=== PATIENT | female | born 1940 | race Caucasian/White ===

== ENCOUNTER → 2023-10-06 12:52 | Outpatient (REF) | payer MEDICARE, BC, SELFPAY ==
[2023-10-06 13:21] LABS: % Basophils 1.1 % (0-2); % Eosinophils 1.2 % (0-6); % Immature Granulocytes 0.1 % (0-0.5); % Lymphocytes 26.5 % (20.5-51.1); % Monocytes 7.8 % (1.7-9.3); % Neutrophils 63.3 % (42.2-75.2); Absolute Basophils 0.1 10^3/uL (0-0.2); Absolute Eosinophils 0.1 10^3/uL (0-0.7); Absolute Lymphocytes 1.9 10^3/uL (1.2-3.4); Absolute Monocytes 0.6 10^3/uL (0.1-0.6); Absolute Neutrophils 4.6 10^3/uL (1.4-6.5); Hematocrit 42.5 % (37.0-47.0); Hemoglobin 14.4 g/dL (12.0-16.0); Mean Corp Hgb Conc. 33.9 g/dL (33.0-37.0); Mean Corpuscular Hgb 30.6 pg (27.0-31.0); Mean Corpuscular Volume 90.2 fL (81.0-99.0); Mean Platelet Volume 11.5 fL (7.4-10.4); Nucleated Red Blood Cells % 0 %; Platelet Count 209 10^3/uL (130-400); Red Blood Cell Count 4.71 10^6/uL (4.20-5.40); Red Cell Dist. Width 15.5 % (11.5-14.5); White Blood Cell Count 7.3 10^3/uL (4.8-10.8)
[2023-10-06 13:52] LABS: ALT (SGPT) 24 U/L (0-35); AST (SGOT) 30 U/L (14-36); Albumin 4.4 g/dl (3.5-5.0); Alkaline Phosphatase 114 U/L (38-126); Blood Urea Nitrogen 29 mg/dl (7-17); Calcium 9.6 mg/dl (8.4-10.2); Carbon Dioxide 23 mmol/L (22-30); Chloride 106 mmol/L (98-107); Glucose 152 mg/dl (70-99); HDL Cholesterol 67 mg/dl; LDL Cholesterol, Calculated 75 mg/dl; Potassium 3.4 mmol/L (3.5-5.1); Sodium 138 mmol/L (135-145); Total Bilirubin 0.9 mg/dl (0.2-1.3); Total Cholesterol 159 mg/dl (50-199); Total Protein 7.3 g/dl (6.3-8.2); Triglyceride 89 mg/dl (10-149); Very Low Density Lipoprotein 17 mg/dl (0-30)
[2023-10-06 13:59] LABS: Urine Albumin Negative (Neg - Trace); Urine Bilirubin Negative (Negative); Urine Character Very Cloudy (Clear); Urine Color Yellow; Urine Glucose Negative (Negative); Urine Ketone Trace (Negative); Urine Leukocyte 2+ (Negative); Urine Nitrite Positive (Negative); Urine Occult Blood Trace (Negative); Urine Urobilinogen Negative (Neg - 1+)
[2023-10-06 14:08] LABS: Urine Mucus Few
[2023-10-06 14:09] LABS: Urine Squamous Cell 26-30 /LPF (Few)
[2023-10-06 14:10] LABS: Urine Bacteria Many (Negative); Urine White Cell >100 /HPF (0-5)
[2023-10-06 14:24] LABS: Glycohemoglobin (HgbA1c) 6.3 % (4.0-5.6)
[2023-10-06 14:41] LABS: Microalbumin, Random Urine 1.9 mg/dl (0.6-1.7)
[2023-10-09 11:52] LABS: Intact PTH 6.1 pg/ml (13.6-85.8)
== END ==
LOC: WDC 12:52
PROVIDERS: ATTENDING PHYSICIAN Family Medicine
DX: E11.21 Type 2 diabetes mellitus with diabetic nephropathy (principal); E78.5 Hyperlipidemia, unspecified; N18.31 Chronic kidney disease, stage 3a; E11.9 Type 2 diabetes mellitus without complications; Z12.31 Encounter for screening mammogram for malignant neoplasm of breast
CPT/HCPCS: 36415; 77063; 77067; 80053; 80061; 81003; 81015; 82043; 83036; 83970; 85025

== ENCOUNTER → 2023-10-07 14:07 | Outpatient (REF) | payer MEDICARE, BC, SELFPAY ==
[2023-10-07 15:06] LABS: Urine Albumin Trace (Neg - Trace); Urine Bilirubin Negative (Negative); Urine Character Clear (Clear); Urine Color Yellow; Urine Glucose Negative (Negative); Urine Ketone Trace (Negative); Urine Leukocyte 2+ (Negative); Urine Nitrite Positive (Negative); Urine Occult Blood Negative (Negative); Urine Specific Gravity 1.015 (<1.030); Urine Urobilinogen Negative (Neg - 1+)
[2023-10-07 15:26] LABS: Urine Bacteria Many (Negative); Urine Hyaline Cast 0-2 /LPF (0-2); Urine Red Blood Cell None Seen /HPF (0-2); Urine Squamous Cell 0-2 /LPF (Few); Urine White Cell >100 /HPF (0-5)
== END ==
LOC: REG 14:07
PROVIDERS: ATTENDING PHYSICIAN Family Medicine
DX: R82.81 Pyuria (principal)
CPT/HCPCS: 81003; 81015; 87077; 87086; 87186

== ENCOUNTER 2024-09-05 11:50 | Emergency (ER) | payer MEDICARE, BC, SELFPAY ==
[2024-09-05 12:17] VITALS: BP 148/73
--- NOTE | 2024-09-05 12:18 | ED.GENMED ---
ED Provider Triage
-
Patient seen by provider in Triage?: Seen in Triage
Attestation: A medical screening examination has been initiated by a qualified medical provider. Based on the assessment performed at this time, it has been determined that an emergent medical condition may exist and the patient has been informed
that further medical evaluation and possible additional diagnostic testing may be needed.
HPI: 84-year-old female is here for her third nosebleed in the past 6 days. Has appointment with ENT 2/4 at [place], but patient would prefer to see ENT here in [facility]. Nosebleed this morning started on left side and then some on both
sides, with clots. No thinners.
GENERAL: Alert , in no apparent distress
EYE: No visual abnormalities.
NECK: Trachea midline
ENT: No visible abnormalities.
LUNGS: No acute respiratory distress
NEUROLOGICAL: Alert and oriented
SKIN: Skin intact. No visible changes.
MUSCULOSKELETAL: Moving extremities normally
PSYCH: Normal and appropriate interaction.
This is a medical evaluation conducted in person to initiate diagnostic evaluation and provide initial therapeutics. Please see further documentation by the treating clinician.
History of Present Illness
General
Chief Complaint: Nose Bleed
Source: patient and family (Son with patient)
Exam Limitations: none
Time Seen by Provider: 09/05/24 14:29
Nursing documentation reviewed up to this point in time: agreed with
History of Present Illness
History of Present Illness:
84-year-old female is here for her third nosebleed in the past 6 days. Has appointment with ENT 2/4 at [place], but patient would prefer to see ENT here in [facility]. Nosebleed this morning started on left side and then some on both
sides, with clots. No thinners.
Past History
Past History
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
ED Past Surgical History: Gynecological (Hysterectomy), Tonsilectomy and Other (Right lung lobectomy)
Social History
Tobacco: Non-smoker
Alcohol: None
Drug: None
Living: alone
Review of Systems
Review of Systems
Allergies reviewed?: Yes
All Other Systems: ROS reviewed and negative except as documented in HPI and ROS
Constitutional: Denies fever or chills
EENT: Denies sore throat or runny nose
Respiratory: Denies cough or trouble breathing
Cardiac: Denies chest pain
ABD/GI: Denies abdominal pain or nausea
Musculoskeletal: Reports no symptoms
Skin: Reports no symptoms
Neurological: Reports no symptoms
Phy Exam
Physical Exam
Physical Exam:
GENERAL: No acute distress. A&Ox3.
CONSTITUTIONAL: Afebrile.
EYES: clear, conjunctivae normal
ENMT: moist mucus membranes, Pharynx nl. No active bleeding from nose. Left nostril has small amount red blood, no active bleeding site identified.
RESPIRATORY: Regular respirations, nonlabored, lungs clear.
CARDIOVASCULAR: Regular rate and rhythm, no murmurs, no rubs.
GI: Soft, nontender, normal BS
MUSCULOSKELETAL: Moves with ease. Well perfused.
SKIN: Warm, dry, pink
PSYCH: Normal mood and affect. Well kept, interactive and appropriate
NEUROLOGIC: Awake, alert and oriented. No focal neurological deficits
Course
Vital Signs
Initial and Last Documented VS:
Initial Vital Signs
Temp Pulse Resp BP Pulse Ox
97.9 F 75 17 148/73 98
09/05/24 12:17 09/05/24 12:17 09/05/24 12:17 09/05/24 12:17 09/05/24 12:17
Last Documented Vital Signs
Temp Pulse Resp BP Pulse Ox
97.9 F 75 17 148/73 98
09/05/24 12:17 09/05/24 12:17 09/05/24 12:17 09/05/24 12:17 09/05/24 12:17
MDM/Problems Addressed
MDM/Problems Addressed:
84-year-old female is here for her third nosebleed in the past 6 days. Has appointment with ENT 2/4 at [place], but patient would prefer to see ENT here in [facility]. Nosebleed this morning started on left side and then some on both
sides, with clots. No thinners.
2:45 PM:
Patient has had no bleeding since arrival.
No active bleeding on exam of nasal passages.
I gave her the option of packing her nose or taking home a nose clamp to use as needed and she opted for the nose clamp.
ED Attending Note
-
Portions of this chart may have been created with voice recognition software.� Occasional wrong word or��sound alike� substitutions may have occurred due to the inherent limitations of voice recognition software.
Discharge Plan
Departure
Patient Disposition: Home (Routine Discharge)
Date of Disposition: 09/05/24
Time of Disposition: 14:43
Patient with high blood pressure during this ER visit?: No
Discharge Problem:
Epistaxis
Instructions: Nosebleeds (DC)
Prescriptions:
No Action
allopurinol 100 MG tablet
300 mg PO DAILY
lovastatin [Altoprev] 60 MG tablet extended release 24 hr
60 mg PO QPM
xmbhdwel-yzx-PS-lycopen-lutein [Centrum Silver] 1 EACH tablet
1 ea PO DAILY
acetaminophen 325 MG tablet
650 mg PO Q4HPRN PRN (Reason: mild pain)
coenzyme Q10 [Co Q-10] 10 MG capsule
1 dose PO DAILY
cyanocobalamin (vitamin B-12) 1,000 MCG tablet
1,000 mcg PO DAILY
cranberry fruit 400 MG capsule
1 dose PO DAILY
doxazosin 4 MG tablet
8 mg PO QPM
cholecalciferol (vitamin D3) 2,000 UNITS tablet
2,000 units PO DAILY
omega 1-aef-xdm-fish oil 1 EACH capsule
1 ea PO DAILY
biotin 5,000 MCG tablet, sublingual
5,000 mcg PO DAILY
loperamide 2 MG capsule
2 mg PO Q6HPRN PRN (Reason: diarrhea) 0RF
nifedipine 30 MG tablet extended release
30 mg PO DAILY Qty: 30 0RF
Referrals:
Giorgi Collins MD [Active] - As needed
Wiley Christina MD [Active] - As needed
UNKNOWN - PT DOES,NOT KNOW [Family Provider] -
Activity Restrictions/Additional Instructions:
As we discussed, use the clamps as I showed you as needed for nosebleeds. If after applying the clamp for 15 minutes 3 separate times your nose still bleeding you need to return here for evaluation.
Interventions
Interventions:
*Risk Screen - Suicide Last Done: 09/05/24 12:19
*General Assessment Last Done: 09/05/24 12:19
*Neglect/Abuse Screening Last Done: 09/05/24 12:19
*ED COVID-19 Vaccine History Last Done: 09/05/24 12:19
ED-EENT Assessment Last Done: 09/05/24 13:14
Discharge Date and Time
Print Language: YI
[2024-09-05 15:00] VITALS: BP 140/76
== END 2024-09-05 15:01 | disposition home or self-care (01) ==
LOC: EMR 11:50
PROVIDERS: EMERGENCY PHYSICIAN Student in an Organized Health Care Education/Training Program
DX: R04.0 Epistaxis (principal); I10 Essential (primary) hypertension; E78.00 Pure hypercholesterolemia, unspecified; E11.9 Type 2 diabetes mellitus without complications; G47.33 Obstructive sleep apnea (adult) (pediatric); Z85.42 Personal history of malignant neoplasm of other parts of uterus; Z90.710 Acquired absence of both cervix and uterus
CPT/HCPCS: 99282

== ENCOUNTER → 2024-10-31 12:00 | Outpatient (REF) | payer MEDICARE, BC, SELFPAY | LOC: WDC 12:00 | PROVIDERS: ATTENDING PHYSICIAN Family Medicine | DX: Z12.31 Encounter for screening mammogram for malignant neoplasm of breast (principal) | CPT/HCPCS: 77063; 77067 ==

== ENCOUNTER → 2024-10-31 13:05 | Outpatient (REF) | payer MEDICARE, BC, SELFPAY ==
[2024-10-31 14:07] LABS: % Basophils 0.8 % (0-2); % Eosinophils 1.1 % (0-6); % Immature Granulocytes 0.5 % (0-0.5); % Monocytes 8.2 % (1.7-9.3); % Neutrophils 66.4 % (42.2-75.2); Absolute Basophils 0.1 10^3/uL (0-0.2); Absolute Eosinophils 0.1 10^3/uL (0-0.7); Absolute Lymphocytes 1.5 10^3/uL (1.2-3.4); Absolute Monocytes 0.5 10^3/uL (0.1-0.6); Absolute Neutrophils 4.2 10^3/uL (1.4-6.5); Hematocrit 38.2 % (37.0-47.0); Mean Corpuscular Hgb 31.1 pg (27.0-31.0); Mean Corpuscular Volume 91.4 fL (81.0-99.0); Mean Platelet Volume 11.6 fL (7.4-10.4); Nucleated Red Blood Cells % 0 %; Platelet Count 151 10^3/uL (130-400); Red Blood Cell Count 4.18 10^6/uL (4.20-5.40); Red Cell Dist. Width 16.7 % (11.5-14.5); White Blood Cell Count 6.4 10^3/uL (4.8-10.8)
[2024-10-31 14:31] LABS: ALT (SGPT) 29 U/L (0-35); AST (SGOT) 24 U/L (14-36); Albumin 4.2 g/dl (3.5-5.0); Alkaline Phosphatase 97 U/L (38-126); Blood Urea Nitrogen 33 mg/dl (7-17); Carbon Dioxide 25 mmol/L (22-30); Chloride 108 mmol/L (98-107); Glucose 139 mg/dl (70-99); HDL Cholesterol 65 mg/dl; LDL Cholesterol, Calculated 152 mg/dl; Potassium 3.7 mmol/L (3.5-5.1); Sodium 144 mmol/L (135-145); Total Bilirubin 0.7 mg/dl (0.2-1.3); Total Cholesterol 234 mg/dl (50-199); Total Protein 7.1 g/dl (6.3-8.2); Triglyceride 86 mg/dl (10-149); Uric Acid 3.3 mg/dl (2.5-6.2); Very Low Density Lipoprotein 17 mg/dl (0-30); eGFR > 60.00
[2024-10-31 15:02] LABS: TSH Reflex To Free T4 0.05 uIU/ml (0.47-4.68)
== END ==
LOC: REG 13:05
PROVIDERS: ATTENDING PHYSICIAN Family Medicine
DX: I10 Essential (primary) hypertension (principal); E78.5 Hyperlipidemia, unspecified; M10.9 Gout, unspecified; R73.03 Prediabetes; N18.31 Chronic kidney disease, stage 3a
CPT/HCPCS: 36415; 80053; 80061; 83036; 84439; 84443; 84550; 85025

== ENCOUNTER → 2025-05-03 14:37 | Outpatient (REF) | payer MEDICARE, BC, SELFPAY | LOC: RCS 14:37 | PROVIDERS: ATTENDING PHYSICIAN Family Medicine | DX: R06.09 Other forms of dyspnea (principal) | CPT/HCPCS: 93005; 93306 ==

== ENCOUNTER 2025-05-24 20:35 | Inpatient (IN) | payer MEDICARE, BC, SELFPAY ==
[2025-05-24] VITALS (9 sets, daily range): BP systolic 127–172; BP diastolic 43–74; BMI 34.4
[2025-05-24 16:42] LABS: Hematocrit 19.8 % (37.0-47.0); Hemoglobin 6.5 g/dL (12.0-16.0); Mean Corp Hgb Conc. 32.8 g/dL (33.0-37.0); Mean Corpuscular Volume 103.7 fL (81.0-99.0); Red Cell Dist. Width 18.6 % (11.5-14.5)
[2025-05-24 16:53] LABS: ALT (SGPT) 17 U/L (0-35); AST (SGOT) 22 U/L (14-36); Albumin 4.2 g/dl (3.5-5.0); Alkaline Phosphatase 89 U/L (38-126); Blood Urea Nitrogen 31 mg/dl (7-17); Calcium 9.1 mg/dl (8.4-10.2); Carbon Dioxide 21 mmol/L (22-30); Chloride 108 mmol/L (98-107); Glucose 150 mg/dl (70-99); Potassium 3.7 mmol/L (3.5-5.1); Sodium 138 mmol/L (135-145); Total Protein 7.0 g/dl (6.3-8.2); eGFR 49.24
[2025-05-24 17:46] LABS: Platelet Count 52 10^3/uL (130-400)
[2025-05-24 18:21] LABS: Nucleated Red Blood Cells % 0 %
--- NOTE | 2025-05-24 18:56 | ED.GENMED ---
History of Present Illness
<Mikie Cabrera Jr., PA-C - Last Filed: 05/24/25 19:50>
General
Chief Complaint: Abnormal Lab Value
Source: patient
Exam Limitations: none
Time Seen by Provider: 05/24/25 17:54
Nursing documentation reviewed up to this point in time: agreed with
History of Present Illness
History of Present Illness:
85-year-old female presenting to the emergency department after being found to have low hemoglobin low platelets and neutropenia as an outpatient. Has had vague shortness of breath weakness and fatigue over the past month or so. Denies any known
bleeding no changes in bowel movements. Does have a colostomy in place.
Past History
<Mikie Cabrera Jr., PA-C - Last Filed: 05/24/25 19:50>
Past History
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
ED Past Surgical History: Gynecological (Hysterectomy), Tonsilectomy and Other (Right lung lobectomy)
Social History
Tobacco: Non-smoker
Alcohol: None
Drug: None
Living: alone
Review of Systems
<Mikie Cabrera Jr., PA-C - Last Filed: 05/24/25 19:50>
Review of Systems
Allergies reviewed?: Yes
All Other Systems: ROS reviewed and negative except as documented in HPI and ROS
Phy Exam
<Mikie Cabrera Jr., PA-C - Last Filed: 05/24/25 19:50>
Physical Exam
Physical Exam:
GENERAL: Alert , in no apparent distress
EYE: pupils equal and reactive
NECK: Supple, no significant adenopathy.
ENT: o/p clr, mmm.
CARDIAC: Regular rate and rhythm .
LUNGS: Clear breath sounds bilaterally, no acute respiratory distress, no wheezes/rales/rhonchi
ABDOMEN: Colostomy in place, stool sample for guaiac which was negative. Abdomen is soft, without focal tenderness, no r/g, no cvat
NEUROLOGICAL: Alert and oriented, no focal neuro deficits
SKIN: Warm and dry, skin intact.
MUSCULOSKELETAL: No edema, well perfused.
PSYCH: Normal and appropriate interaction.
Course
<Mikie Cabrera Jr., PA-C - Last Filed: 05/24/25 19:50>
Orders/Labs/Results
Orders:
Orders
05/24/25 16:08
EKG [Electrocardiogram (*1)] Urgent
Reason for Study: Other
Other Reason for Exam: anemia
EKG- Treatment ONCE
05/24/25 16:23
Type+Screen Urgent
CMP [Comprehensive Metabolic Panel] Urgent
Complete Blood Count/With Diff Urgent
Ferritin Urgent
Comment: ADD ON
Folate Urgent
Comment: ADD ON
Iron Urgent
Comment: ADD ON
LDH Urgent
Comment: ADD ON
Reticulocyte Count Urgent
Total Iron Binding Urgent
Comment: ADD ON
Vitamin B12 Urgent
Comment: ADD ON
05/24/25 18:55
* Blood Bank Products Urgent
Blood Bank Products: *Packed RBC Leuko (PRBC's
Quantity: 1
Transfuse Today: Yes
Reason: Anemia
05/24/25 19:42
Add On- LAB Routine
Tests Added?: iron, ferritin, tibc, foalte, vit b12
05/24/25 19:59
Admit/Transfer Patient As Directed
Co-Sign Provider:
Level of Care: Inpatient admission
Assign to:: Medical/Surgical
Physician / Group: Terry
Diagnosis: Symptomatic Anemia / Pancytopenia
Reason for Hospitalization: blood transfusion, hematology consult
Expected length of stay greater than two midnights?: Yes
ELOS- Estimated Length of Stay in days: 3
I certify the patient meets the requirements for IP care: Yes
PRN Pain Medication Management As Directed
May give lesser potent ordered pain med per pt: Yes
preference::
Protocol:: Medication orders for pain may be administered in a
manner that supports deferring to patient preference
when the pt is:
- Requesting an ordered lesser potent pain medication.
Least to most potent pain medications are defined
as: acetaminophen < NSAID < tramadol < opioids
(morphine, oxycodone, hydromorphone).
- Requesting a lesser dose of the same medication IF
ORDERED.
- Requesting a less intrusive route of administration
if both routes are prescribed by the provider (PO <
IV).
05/24/25 20:00
Code Status As Directed
Resuscitation Status: Full Code
Abnormal Lab Results
05/24/25
16:23
WBC 2.5 L 10^3/uL
(4.8-10.8)
RBC 1.91 L 10^6/uL
(4.20-5.40)
Hgb 6.5 L* g/dL
(12.0-16.0)
Hct 19.8 L* %
(37.0-47.0)
MCV 103.7 H fL
(81.0-99.0)
MCH 34.0 H pg
(27.0-31.0)
MCHC 32.8 L g/dL
(33.0-37.0)
RDW 18.6 H %
(11.5-14.5)
Plt Count 52 L 10^3/uL
(130-400)
Absolute Neuts (auto) 0.9 L* 10^3/uL
(1.4-6.5)
Immature Gran % 1.6 H %
(0-0.5)
Neutrophils % 35.1 L %
(42.2-75.2)
Lymphocytes % 51.8 H %
(20.5-51.1)
Monocytes % 10.3 H %
(1.7-9.3)
Chloride 108 H mmol/L
(98-107)
Carbon Dioxide 21 L mmol/L
(22-30)
BUN 31 H mg/dl
(7-17)
Creatinine 1.1 H mg/dL
(0.6-1.0)
Glucose 150 H mg/dl
(70-99)
TIBC 261 L ug/dl
(265-497)
Total Bilirubin 1.7 H mg/dl
(0.2-1.3)
Crossmatch IS Only See Detail
05/24/25 16:23
05/24/25 16:23
Vital Signs
Initial and Last Documented VS:
Initial Vital Signs
Temp Pulse Resp BP Pulse Ox
98.5 F 94 20 157/74 98
05/24/25 16:02 05/24/25 16:02 05/24/25 16:02 05/24/25 16:02 05/24/25 16:02
Last Documented Vital Signs
Temp Pulse Resp BP Pulse Ox
98.2 F 84 18 127/43 98
05/24/25 20:31 05/24/25 20:31 05/24/25 20:31 05/24/25 20:31 05/24/25 20:31
<Sandra Johnson MD - Last Filed: 05/24/25 20:41>
Orders/Labs/Results
Orders:
Orders
05/24/25 16:08
EKG [Electrocardiogram (*1)] Urgent
Reason for Study: Other
Other Reason for Exam: anemia
EKG- Treatment ONCE
05/24/25 16:23
Type+Screen Urgent
CMP [Comprehensive Metabolic Panel] Urgent
Complete Blood Count/With Diff Urgent
Ferritin Urgent
Comment: ADD ON
Folate Urgent
Comment: ADD ON
Iron Urgent
Comment: ADD ON
LDH Urgent
Comment: ADD ON
Reticulocyte Count Urgent
Total Iron Binding Urgent
Comment: ADD ON
Vitamin B12 Urgent
Comment: ADD ON
05/24/25 18:55
* Blood Bank Products Urgent
Blood Bank Products: *Packed RBC Leuko (PRBC's
Quantity: 1
Transfuse Today: Yes
Reason: Anemia
05/24/25 19:42
Add On- LAB Routine
Tests Added?: iron, ferritin, tibc, foalte, vit b12
05/24/25 19:59
Admit/Transfer Patient As Directed
Co-Sign Provider:
Level of Care: Inpatient admission
Assign to:: Medical/Surgical
Physician / Group: Terry
Diagnosis: Symptomatic Anemia / Pancytopenia
Reason for Hospitalization: blood transfusion, hematology consult
Expected length of stay greater than two midnights?: Yes
ELOS- Estimated Length of Stay in days: 3
I certify the patient meets the requirements for IP care: Yes
PRN Pain Medication Management As Directed
May give lesser potent ordered pain med per pt: Yes
preference::
Protocol:: Medication orders for pain may be administered in a
manner that supports deferring to patient preference
when the pt is:
- Requesting an ordered lesser potent pain medication.
Least to most potent pain medications are defined
as: acetaminophen < NSAID < tramadol < opioids
(morphine, oxycodone, hydromorphone).
- Requesting a lesser dose of the same medication IF
ORDERED.
- Requesting a less intrusive route of administration
if both routes are prescribed by the provider (PO <
IV).
05/24/25 20:00
Code Status As Directed
Resuscitation Status: Full Code
Abnormal Lab Results
05/24/25
16:23
WBC 2.5 L 10^3/uL
(4.8-10.8)
RBC 1.91 L 10^6/uL
(4.20-5.40)
Hgb 6.5 L* g/dL
(12.0-16.0)
Hct 19.8 L* %
(37.0-47.0)
MCV 103.7 H fL
(81.0-99.0)
MCH 34.0 H pg
(27.0-31.0)
MCHC 32.8 L g/dL
(33.0-37.0)
RDW 18.6 H %
(11.5-14.5)
Plt Count 52 L 10^3/uL
(130-400)
Absolute Neuts (auto) 0.9 L* 10^3/uL
(1.4-6.5)
Immature Gran % 1.6 H %
(0-0.5)
Neutrophils % 35.1 L %
(42.2-75.2)
Lymphocytes % 51.8 H %
(20.5-51.1)
Monocytes % 10.3 H %
(1.7-9.3)
Chloride 108 H mmol/L
(98-107)
Carbon Dioxide 21 L mmol/L
(22-30)
BUN 31 H mg/dl
(7-17)
Creatinine 1.1 H mg/dL
(0.6-1.0)
Glucose 150 H mg/dl
(70-99)
TIBC 261 L ug/dl
(265-497)
Total Bilirubin 1.7 H mg/dl
(0.2-1.3)
Crossmatch IS Only See Detail
05/24/25 16:23
05/24/25 16:23
Vital Signs
Initial and Last Documented VS:
Initial Vital Signs
Temp Pulse Resp BP Pulse Ox
98.5 F 94 20 157/74 98
05/24/25 16:02 05/24/25 16:02 05/24/25 16:02 05/24/25 16:02 05/24/25 16:02
Last Documented Vital Signs
Temp Pulse Resp BP Pulse Ox
98.2 F 84 18 127/43 98
05/24/25 20:31 05/24/25 20:31 05/24/25 20:31 05/24/25 20:31 05/24/25 20:31
<Mikie Cabrera Jr., PA-C - Last Filed: 05/24/25 19:50>
MDM/Problems Addressed
MDM/Problems Addressed:
85-year-old female presenting to the emergency department today with concerns of abnormal labs as an outpatient. Has had vague symptoms over the past month or so. Denies any known bleeding. Vital signs normal on arrival patient no distress stool
was guaiac negative and brown. Patient does have neutropenia thrombocytopenia and anemia. Patient written for a unit of blood otherwise will be admitted for further monitoring.
<Mikie Cabrera Jr., PA-C - Last Filed: 05/24/25 19:50>
*Pulse Oximetry
SaO2: 98
Oxygen Mode of Delivery: Room air
Patient hypoxic: no (99)
*Critical Care Note
Total Time (30-74mins, 75-104mins- exclusive of procedures): Not Applicable
ED Attending Note
<DIO Neal Jr. Last Filed: 05/24/25 19:50>
-
Portions of this chart may have been created with voice recognition software.� Occasional wrong word or��sound alike� substitutions may have occurred due to the inherent limitations of voice recognition software.
<Sandra Johnson MD - Last Filed: 05/24/25 20:41>
ED Attending Note
Patient seen and examined by attending physician: Yes
I performed the substantive portion of visit, reviewed & personally made and approve the management plan that is documented in note by myself or VALENTINO.: Yes
ED Attending Note:
85 yr old female with c/o weakness over some time...noted to have pancytopenia as an outpt and presents to ED. Pt denies cp/sob/abd pain/bleeding/f/c/n/v or other comts. Watching tv in bed here, comfortable, in nad. PRBC's infusing. Pt to be
admitted for continued montioring and w/u.
Discharge Plan
Departure
Patient Disposition: Admit
Date of Disposition: 05/24/25
Time of Disposition: 19:49
Admit to: Med/Surg
Admit to doctor: Terry
Presentation/result/management discussed w/ accepting MD/DO: Hospitalist
Patient with high blood pressure during this ER visit?: No
Condition: Good
Covid-19: Not Applicable
Discharge Problem:
Pancytopenia
Interventions
Interventions:
*Risk Screen - Suicide Last Done: 05/24/25 16:02
*General Assessment Last Done: 05/24/25 18:59
*Neglect/Abuse Screening Last Done: 05/24/25 16:02
*ED- Fall Risk Assessment Last Done: 05/24/25 18:59
*ED COVID-19 Vaccine History Last Done: 05/24/25 18:59
*ED Influenza Vaccine History Last Done: 05/24/25 18:59
--- NOTE | 2025-05-24 19:37 | HPS.HSE ---
Addendum entered and electronically signed by Ernesto Stewart DO 05/24/25 21:13:
Patient seen and examined independently. Agree with findings and plan as set forth by Pastora Duffy PA-C.
Patient is an 85y F with PMH significant for hypertension and aortic stenosis who presents to ED for evaluation of abnormal outpatient labs. Patient states that she has been having fatigue and dyspnea with activity / exercise intolerance since
the end of April. She was seen by her PCP and [facility] and had an Echo that was reportedly unremarkable. She had labs done this AM which were abnormal and was sent to the ED for further evaluation.
Patient denies any gross blood loss. No new medications.
Ass:
Symptomatic Anemia
Pancytopenia
Benign Hypertension
Dyslipidemia
History of Gout
Obesity due to excess calories
Plan:
Admit for further evaluation and treatment.
Unclear etiology of pancytopenia.
Transfusing PRBCs in the ED for symptomatic anemia. Follow for improvement.
Hematology evaluation for further recommendations.
Hold allopurinol and statin for now.
Continue other usual home medications.
Original Note:
Family Physician
-
Family Physician: Marilou Culp MD
Chief Complaint
-
Abnormal Blood Work
History of Present Illness
Patient is an 85 y/o female past medical history of hypertension, hyperlipidemia, pre-diabetes, aortic stenosis, and colovaginal fistula s/p colostomy who was sent over by her squilgeer due to abnormal blood work. Patient reports she been having
worsening dyspnea on exertion for the past month. She states she cant walk more than 4 steps without getting short of breath and having to sit down. She notes her breathing does improve with rest. She denies chest pain, palpitations,
dizziness/lightheadedness, or lower extremity edema. She was seen by her squilgeer who started a work-up with echocardiogram, and then blood work which she completed today. Blood work was significantly abnormal with new pancytopenia. Patient
denies any easy bleeding/bruising. She denies any black/bloody stools.
Medical History
Past Medical History
Past Medical History: Reports Other
Additional Past Medical History:
Essential Hypertension
Hyperlipidemia
Pre-Diabetes
Moderate Aortic Stenosis
Obstructive Sleep Apnea
Gout
Endometrial Cancer
Colovaginal Fistula
Pulmonary Histoplasmosis
Class II Obesity
Past Surgical History: Reports Other
Additional Past Surgical History:
Total Hysterectomy
Sigmoidectomy with Colostomy
Partial Lung Lobectomy
Social History
Tobacco: Non-smoker
Personal:
Family History
Family History: Not pertinent
Allergies / Home Medications
Allergies reflects when Allergies were last updated in [facility].
Home Medications with original date entered in [facility]
Allergy/Medication List:
Allergies
Allergy/AdvReac Type Severity Reaction Status Date / Time
No Known Allergies Allergy Verified 05/24/25 16:06
Home Medications
allopurinol 100 mg tablet 300 mg PO DAILY 10/13/15
lovastatin 60 mg tablet,extended release 24 hr (Altoprev) 60 mg PO QPM 10/13/15
suuxtfzf-oqq-zqwpb acid 0.4 mg-lycopene 300 mcg-lutein 250 mcg tablet (Centrum Silver) 1 ea PO DAILY 10/13/15
acetaminophen 325 mg tablet 650 mg PO Q4HPRN PRN mild pain 01/10/19
biotin 5,000 mcg sublingual tablet 5,000 mcg PO DAILY 01/10/19
cholecalciferol (vitamin D3) 50 mcg (2,000 unit) tablet 2,000 units PO DAILY 01/10/19
coenzyme Q10 10 mg capsule (Co Q-10) 1 dose PO DAILY 01/10/19
cranberry fruit 400 mg capsule 1 dose PO DAILY 01/10/19
cyanocobalamin (vitamin B-12) 1,000 mcg tablet 1,000 mcg PO DAILY 01/10/19
omega 5-uft-ymm-fish oil 500 mg (200mg-300mg)-1,000 mg capsule 1 ea PO DAILY 01/10/19
loperamide 2 mg capsule 2 mg PO Q6HPRN PRN diarrhea 01/12/19
doxazosin 8 mg tablet 8 mg PO HS 05/24/25
nifedipine 60 mg tablet,extended release 24 hr 60 mg PO DAILY 05/24/25
vitamins A,C,T-rweq-nhuwuo 2,148 mcg-113 mg-45 mg-17.4 mg tablet (PreserVision AREDS) 1 tab PO BID 05/24/25
Review of Systems
-
A 12 point ROS was completed and negative except as noted: Yes
Constitutional: Denies Fever
Respiratory: Reports Trouble Breathing; Denies Cough
Cardiac: Denies Chest Pain or Palpitations
Physical Exam
Vital Signs
Vital Signs
Temp Pulse Resp BP Pulse Ox
98.5 F 92 19 172/56 99
05/24/25 16:02 05/24/25 18:53 05/24/25 18:53 05/24/25 18:53 05/24/25 18:59
Physical Exam
General: Comfortable, Conversant and Other (Appears slightly pale)
HEENT: Anicteric and Moist mucous membranes
Respiratory: Clear and Non Labored Respirations
Cardiac: S1/S2, Regular Rhythm and Murmur
GI: Soft, Non Tender and Ostomy
Musculoskeletal: No Clubbing, No Cyanosis and No Edema
Skin: Warm and Dry
Neuro: Awake, Alert, Oriented and Nonfocal/grossly intact
Psych: Calm
Laboratory Results
-
05/24/25 16:23
05/24/25 16:23
Laboratory Results
Total Bilirubin 1.7 mg/dl (0.2-1.3) H 05/24/25 16:23
AST 22 U/L (14-36) 05/24/25 16:23
ALT 17 U/L (0-35) 05/24/25 16:23
Alkaline Phosphatase 89 U/L (38-126) 05/24/25 16:23
Data Reviewed
-
Lab Data: Labs Reviewed by me
Old Records: Reviewed
Impression/Plan
-
Symptomatic Anemia / New Pancytopenia
-Consult Hematology
-Transfuse 1 units PRBCs
-Hold allopurinol and lovastatin as possible causes of pancytopenia
-Check LDH, and Haptoglobin to evaluate for hemolysis as possibility given her elevated bilirubim
Essential Hypertension
-Continue doxazosin and nifedipine
Hyperlipidemia
-Hold lovastatin
Gout
-Hold allopurinol
Obstructive Sleep Apnea
-Patient declined hospital CPAP
Class II Obesity
-Affects all aspects of care
DVT proph: SCDs
Code Status: Full Code
[2025-05-24 20:00] LABS: Iron 121 ug/dl (37-170)
[2025-05-24 20:10] LABS: Total Iron Binding Capacity 261 ug/dl (265-497)
[2025-05-24 20:37] LABS: Ferritin 197.0 ng/ml (11.1-264.0)
[2025-05-24 20:47] LABS: Reticulocyte Count 2.5 % (0.4-2.8)
[2025-05-24 21:03] LABS: LDH 254 U/L (120-246)
[2025-05-24 21:08] LABS: Folate > 20.0 ng/ml (2.76-20); Vitamin B12 730 pg/ml (239-931)
--- NOTE | 2025-05-24 22:25 | PTCARENOTE ---
Pt received from ED via stretcher at 2215. Pt pleasant, AAOx3, VSS, and pulled over into bed from stretcher. Pt absent of pain at this time. Pt currently receiving 1 unit of PRBC hung by gravity. Pt recpetive to room and call gotti. Pt bed in lowest
position and call gotti within reach. Pt educated on importance of call gotti usage, pt relays understanding and cooperation. Will continue with current plan of care.
[2025-05-24] MEDS: CARDURA 8 MG PO (23:11)
[2025-05-25 07:00] VITALS: BP 147/64
[2025-05-25] MEDS: PROCARDIA XL (EXTENDED RELEASE) 60 MG PO (08:16)
[2025-05-25 09:26] LABS: Hematocrit 19.8 % (37.0-47.0); Hemoglobin 6.6 g/dL (12.0-16.0); Mean Corp Hgb Conc. 33.3 g/dL (33.0-37.0); Mean Corpuscular Volume 96.6 fL (81.0-99.0); Platelet Count 43 10^3/uL (130-400); Red Cell Dist. Width 19.2 % (11.5-14.5)
[2025-05-25 09:44] LABS: ALT (SGPT) 14 U/L (0-35); AST (SGOT) 16 U/L (14-36); Albumin 3.3 g/dl (3.5-5.0); Alkaline Phosphatase 69 U/L (38-126); Blood Urea Nitrogen 24 mg/dl (7-17); Calcium 8.4 mg/dl (8.4-10.2); Carbon Dioxide 25 mmol/L (22-30); Chloride 110 mmol/L (98-107); Estimated Creatinine Clearance 50 ml/min; Glucose 149 mg/dl (70-99); Potassium 3.7 mmol/L (3.5-5.1); Sodium 138 mmol/L (135-145); Total Protein 5.6 g/dl (6.3-8.2); eGFR > 60.00
[2025-05-25 11:38] LABS: Normal RBC Morphology No; Platelets Checked Yes
[2025-05-25 11:39] LABS: Acanthocytes 1+; Anisocytosis 2+; Ovalocytes 1+; Schistocytes 1+; Tear Drop Red Blood Cells Slight; Total Cells Counted 100
[2025-05-25 11:40] LABS: Absolute Neutrophils -Man Diff 0.4 10^3/uL (1.4-6.5)
[2025-05-25 12:07] VITALS: BP 151/56
--- NOTE | 2025-05-25 12:10 | CM ---
bindery production manager reviewed patient's chart and met with patient and patient lives alone in a 2 story home with elevator, patient is independent with adl's and has recently been using a walker with ambulation, patient is not current with vn but has used
private caregivers in past [facility].
Plan; Home no needs when stable.
PCP: Marilou Culp
Pharmacy: [facility].
--- NOTE | 2025-05-25 12:35 | CON.ONC ---
Documented by User: Hugh Ross MD, Resident 05/25/25 14:54
Consultation
-
Date Consultation Requested: 05/24/25
Date Consultation Performed: 05/25/25
Requesting Provider: Dr. Fraser
Performing Provider: Dr. Ross; Dr. Griffin
Reason for Consultation: Pancytopenia
Impression
Impression
#Pancytopenia
Suspected 2/2 bone marrow failure (e.g., MDS) or infiltration (e.g., AML)
Pancytopenia with macrocytosis (without B12, folate deficiency), RBC dysplasia (acanthocytes, ovalocytes, schistocytes), normal reticulocyte count, and recent fatigue and BENNETT suggest possible MDS
Labs: WBCs 1.7, Hgb 6.6 s/p 1 unit PRBCs, absolute neutrophils 0.4, PLT 43, retic 2.5, T. bili 1.9, D bili 0.4, LDH 254, B12 730, folate >20, haptoglobin pending
Plan
Plan
#Pancytopenia
Recommend bone marrow biopsy
Recommend flow cytometry
Additional 1 unit PRBCs ordered, pending
Transfuse Hgb <7
Monitor CBC, clinical status while inpatient
Patient History
History of Present Illness
Patient is an 85-year-old female with history of endometrial cancer s/p radiation and hysterectomy in her 50s and basal cell carcinoma s/p resection in November who presented to the [facility] for abnormal outpatient labs. Patient had routine lab work
done through cardiology, which showed pancytopenia. On presentation, patient's labs showed WBCs 2.5, Hgb 6.5, PLT 52. Chart review shows relatively normal lab work from late October 2024, with WBC 6.4, Hgb 13.0, PLT 151. Patient states she has had
fatigue and dyspnea on exertion after walking only 4 feet since April. Denies any other symptoms, including chills, fevers, headache, dizziness, lightheadedness, chest pain, abdominal pain, N/V/D, joint pain, recent illnesses, easy bruising, or
bleeding. No personal or family history of hematologic disorders or malignancy. No recent changes to medications. Patient has been taking allopurinol and lovastatin for a long time. Chart review shows negative breast cancer screening in October
2024, as well as colonoscopy in 2017 negative for malignancy. Patient's father of colon cancer at age 64. Discussed with patient the need for bone marrow biopsy to determine the cause of her pancytopenia. She is amenable to undergoing the
procedure, whether inpatient or outpatient.
Past-Medical/Surgical History
Hypertension, hyperlipidemia, aortic stenosis, prediabetes, endometrial cancer s/p radiation and hysterectomy, gout, colovaginal fistula s/p colostomy, SUE, pulmonary histoplasmosis
Patient Medication
�Medication �Instructions �Recorded �Confirmed �Last Taken �Type
allopurinol 100 mg tablet 300 mg PO DAILY 10/13/15 05/24/25 01/09/19 History
lovastatin 60 mg tablet,extended 60 mg PO QPM 10/13/15 05/24/25 01/09/19 History
release 24 hr (Altoprev)
zilavust-lof-uwfep acid 0.4 1 ea PO DAILY 10/13/15 05/24/25 01/09/19 History
mg-lycopene 300 mcg-lutein 250 mcg
tablet (Centrum Silver)
acetaminophen 325 mg tablet 650 mg PO Q4HPRN PRN mild pain 01/10/19 05/24/25 01/09/19 History
biotin 5,000 mcg sublingual tablet 5,000 mcg PO DAILY 01/10/19 05/24/25 01/09/19 History
cholecalciferol (vitamin D3) 50 2,000 units PO DAILY 01/10/19 05/24/25 01/09/19 History
mcg (2,000 unit) tablet
coenzyme Q10 10 mg capsule (Co 1 dose PO DAILY 01/10/19 05/24/25 01/09/19 History
Q-10)
cranberry fruit 400 mg capsule 1 dose PO DAILY 01/10/19 05/24/25 01/09/19 History
cyanocobalamin (vitamin B-12) 1,000 mcg PO DAILY 01/10/19 05/24/25 01/09/19 History
1,000 mcg tablet
omega 3-rcj-cuf-fish oil 500 mg 1 ea PO DAILY 01/10/19 05/24/25 01/09/19 History
(200mg-300mg)-1,000 mg capsule
loperamide 2 mg capsule 2 mg PO Q6HPRN PRN diarrhea 01/12/19 05/24/25 Unknown Rx
doxazosin 8 mg tablet 8 mg PO HS 05/24/25 05/24/25 Unknown History
nifedipine 60 mg tablet,extended 60 mg PO DAILY 05/24/25 05/24/25 Unknown History
release 24 hr
vitamins A,C,M-bgiq-trivjs 2,148 1 tab PO BID 05/24/25 05/24/25 Unknown History
mcg-113 mg-45 mg-17.4 mg tablet
(PreserVision AREDS)
Active Medications
Generic Name Dose Route Start Last Admin
Trade Name Freq PRN Reason Stop Dose Admin
Acetaminophen 650 mg 05/24/25 22:10
Acetaminophen 325 Mg Tablet PO 06/21/25 22:09
Q4HPRN PRN
mild pain
Doxazosin Mesylate 8 mg 05/24/25 23:00 05/24/25 23:11
Doxazosin 4 Mg Tablet PO 06/21/25 22:59 8 mg
HS KENDALL Administration
Nifedipine 60 mg 05/25/25 08:00 05/25/25 08:16
Nifedipine 60 Mg Extended Release Tablet PO 06/22/25 07:59 60 mg
DAILY KENDALL Administration
Sodium Chloride 0 flush 05/24/25 23:00
Sodium Chloride 0.9% (Flush) Syringe IV 06/21/25 22:59
PER PROTOCOL KENDALL
Review of Systems
-
History Source: Patient
Constitutional: Reports Fatigue and Other (No recent illnesses); Denies Fever or Chills
EENT: Reports Bloody Nose (1 episode 6 months ago)
Respiratory: Reports Trouble Breathing (On exertion after walking only 4 feet); Denies Hemoptysis
Cardiac: Denies Chest Pain
GI: Denies Abdominal Pain, Nausea, Vomiting, Diarrhea or Hemetemesis
Neuro: Denies Dizzy, Headache or Lightheadedness
Hematologic/Lymphatic: Denies Bleeding or Bruising
Physical Exam
-
General: No Apparent Distress, Comfortable and Conversant
HEENT: Negative Jaundice
Cardiology: S1 and S2
Pulmonary: Clear
GI: Soft and Other (Nontender); Negative Distended
Extremities: Pulses Present and Edema (Chronic, per patient); Negative Phlebitic Signs
Neurology: Non Focal
Skin: Warm, Dry and No Ecchymosis; Negative Jaundice
Hematologic / Lymphatic: No Petechiae
Psych: Calm
Labs
Lab Results
WBC 1.7 10^3/uL (4.8-10.8) L* 05/25/25 08:51
RBC 2.05 10^6/uL (4.20-5.40) L 05/25/25 08:51
Hgb 6.6 g/dL (12.0-16.0) L* 05/25/25 08:51
Hct 19.8 % (37.0-47.0) L* 05/25/25 08:51
MCV 96.6 fL (81.0-99.0) 05/25/25 08:51
MCH 32.2 pg (27.0-31.0) H 05/25/25 08:51
MCHC 33.3 g/dL (33.0-37.0) 05/25/25 08:51
RDW 19.2 % (11.5-14.5) H 05/25/25 08:51
Plt Count 43 10^3/uL (130-400) L 05/25/25 08:51
MPV Not Reportable 05/25/25 08:51
Abs Immat Gran (auto) 0.0 10^3/uL (0-0.05) 05/24/25 16:23
Absolute Neuts (auto) 0.9 10^3/uL (1.4-6.5) L* 05/24/25 16:23
Absolute Lymphs (auto) 1.3 10^3/uL (1.2-3.4) 05/24/25 16:23
Absolute Monos (auto) 0.3 10^3/uL (0.1-0.6) 05/24/25 16:23
Absolute Eos (auto) 0.0 10^3/uL (0-0.7) 05/24/25 16:23
Absolute Basos (auto) 0.0 10^3/uL (0-0.2) 05/24/25 16:23
Immature Gran % 1.6 % (0-0.5) H 05/24/25 16:23
Neutrophils % 35.1 % (42.2-75.2) L 05/24/25 16:23
Lymphocytes % 51.8 % (20.5-51.1) H 05/24/25 16:23
Monocytes % 10.3 % (1.7-9.3) H 05/24/25 16:23
Eosinophils % 0.8 % (0-6) 05/24/25 16:23
Basophils % 0.4 % (0-2) 05/24/25 16:23
Creatinine 0.9 mg/dL (0.6-1.0) 05/25/25 08:51
Vital Signs
Vital Signs
Temp Pulse Resp BP Pulse Ox
97.9 F 86 18 151/56 94
05/25/25 12:07 05/25/25 12:07 05/25/25 12:07 05/25/25 12:07 05/25/25 07:00

Documented by User: Adonis Griffin MD 05/25/25 16:05
Plan
Plan
#Pancytopenia
Recommend bone marrow biopsy
Recommend flow cytometry
Additional 1 unit PRBCs ordered, pending
Transfuse Hgb <7
Monitor CBC, clinical status while inpatient
Hematology Addendum:
Patient seen and evaluated and agree w/ resident note and plan as outlined
-pancytopenia - unclear etiology - potentially related to underlying bone marrow process - MDS vs. AML vs. other
-receiving PRBCs transfusion
-reviewed peripheral smear - paucity of neutrophils - neutropenia appreciated - slight monocytosis -scattered nucleated RBCs
-check peripheral blood flow cytometry
-substrate evaluation - check B12/ folic acid levels
-discussed role for diagnostic bone marrow biopsy w/ patient - who expressed interest in proceeding with this diagnostic test
-recommend diagnostic bone marrow evaluation w/ IR - inpt vs. outpt - pending improvement in pt's performance status w/ transfusion of PRBCs
Will continue to follow with you.
--- NOTE | 2025-05-25 14:48 | W.PN.HOSP.TC ---
Today's Communication/Plan
-
Assessment / Plan
Assessment / Plan
NAD
Scleral Anicteric
MMM
No JVD
CTABL
RRR, S1/S2
Soft, NT, ND, BS+
Warm, Dry
AAOx3
Calm
Pancytopenia with symptomatic anemia
S/p 2 units PRBCs
Repeat CBC posttransfusion 2 hours after
Consult hematology/oncology
Follow-up on D. bili
Peripheral smear
May need BmBx and flow cyto
-Appreciate Hem Onc recs
Keep hgb >7, trasnfuse as needed
Essential Hypertension
Continue doxazosin and nifedipine
Hyperlipidemia
Hold lovastatin
Gout
Hold allopurinol
Obstructive Sleep Apnea
Declined hospital CPAP
Anticipated Discharge: > 48 hours
Subjective/Interval History
-
Date of Service: May 25, 2025
Seen and examined. No new complaints. No acute overnight events
Objective Data
-
Labs:
Laboratory Results
05/25/25
08:51
WBC 1.7 L*
Hgb 6.6 L*
Hct 19.8 L*
Plt Count 43 L
Sodium 138
Potassium 3.7
Chloride 110 H
Carbon Dioxide 25
BUN 24 H
Creatinine 0.9
Glucose 149 H
Calcium 8.4
Total Bilirubin 1.9 H
AST 16
ALT 14
Alkaline Phosphatase 69
Vital Signs:
Vital Signs
Temp Pulse Resp BP Pulse Ox
97.9 F 86 18 151/56 94
05/25/25 12:07 05/25/25 12:07 05/25/25 12:07 05/25/25 12:07 05/25/25 07:00
I&O
05/24/25 05/25/25 05/26/25
06:59 06:59 06:59
Intake Total 500 / 500
Balance 500 / 500
[2025-05-25 15:00] VITALS: BP 148/54
[2025-05-25 15:28] LABS: LDH 191 U/L (120-246); Uric Acid 4.2 mg/dl (2.5-6.2)
[2025-05-25] MEDS: CARDURA 8 MG PO (22:10)
[2025-05-25 23:13] VITALS: BP 145/67
[2025-05-26 06:00] VITALS: BMI 33.8
[2025-05-26 07:13] LABS: Hematocrit 23.4 % (37.0-47.0); Hemoglobin 8.1 g/dL (12.0-16.0); Mean Corp Hgb Conc. 34.6 g/dL (33.0-37.0); Mean Corpuscular Volume 94.0 fL (81.0-99.0); Red Cell Dist. Width 19.9 % (11.5-14.5)
[2025-05-26 07:29] LABS: Blood Urea Nitrogen 28 mg/dl (7-17); Calcium 8.6 mg/dl (8.4-10.2); Carbon Dioxide 22 mmol/L (22-30); Chloride 111 mmol/L (98-107); Estimated Creatinine Clearance 45 ml/min; Glucose 145 mg/dl (70-99); Potassium 3.8 mmol/L (3.5-5.1); Sodium 139 mmol/L (135-145); eGFR 55.21
[2025-05-26 07:40] VITALS: BP 146/53
[2025-05-26 07:41] LABS: Platelet Count 44 10^3/uL (130-400)
--- NOTE | 2025-05-26 08:05 | W.PN.HOSP.TC ---
Today's Communication/Plan
-
Hgb and platelets stable
Appreciate hematology
Assessment / Plan
Assessment / Plan
Physical Exam
NAD
Normocephalic
MMM
CTABL
RRR, S1/S2
Soft, NT, ND, BS+
Warm, Dry
AAOx3
Calm
Assessment/Plan
Pancytopenia with symptomatic anemia, suspected secondary to bone marrow failure (e.g., MDS) or infiltration (e.g., AML)
S/p 2 units PRBCs (05/24/25 and 05/25/25)
Consult hematology/oncology
D. bili normal
Peripheral smear
May need BmBx and flow cyto
-Appreciate Hem Onc recs
Keep hgb >7, transfuse as needed
Essential Hypertension
Continue doxazosin and nifedipine
Hyperlipidemia
Hold lovastatin
Gout
Hold allopurinol
Obstructive Sleep Apnea
Declined hospital CPAP
DVT Prophylaxis: SCDs
Anticipated Discharge: > 48 hours
Subjective/Interval History
-
Date of Service: May 26, 2025
Patient was seen and examined. She has been having increased urinary frequency, but no other significant symptoms or complaints.
Objective Data
-
Labs:
Laboratory Results
05/26/25
06:19
WBC 2.6 L
Hgb 8.1 L D
Hct 23.4 L
Plt Count 44 L
Sodium 139
Potassium 3.8
Chloride 111 H
Carbon Dioxide 22
BUN 28 H
Creatinine 1.0
Glucose 145 H
Calcium 8.6
Vital Signs:
Vital Signs
Temp Pulse Resp BP Pulse Ox
97.7 F 84 16 146/53 94
05/26/25 07:40 05/26/25 07:40 05/26/25 07:40 05/26/25 07:40 05/26/25 07:40
I&O
05/25/25 05/26/25 05/27/25
06:59 06:59 06:59
Intake Total 500 / 500 240 / 240
Output Total
Balance 500 / 500 239 / 239
[2025-05-26] MEDS: PROCARDIA XL (EXTENDED RELEASE) 60 MG PO (09:46)
[2025-05-26 15:02] LABS: Urine Character Cloudy (Clear)
[2025-05-26 15:10] LABS: Urine Red Blood Cell 0-2 /HPF (0-2); Urine White Cell 50-60 /HPF (0-5)
[2025-05-26] MEDS: CARDURA 8 MG PO (21:18)
[2025-05-26 22:38] VITALS: BP 158/55
--- NOTE | 2025-05-27 06:29 | W.PN.ONC2 ---
Today's Communication / Plan
-
Await follow-up CBC. Patient will need bone marrow biopsy typically done as outpatient but we will reassess tomorrow if patient requires inpatient procedure.
Impression
Impression
#Pancytopenia
Suspected 2/2 bone marrow failure (e.g., MDS) or infiltration (e.g., AML)
Pancytopenia with macrocytosis (without B12, folate deficiency), RBC dysplasia (acanthocytes, ovalocytes, schistocytes), normal reticulocyte count, and recent fatigue and BENNETT suggest possible MDS
Labs: WBCs 1.7, Hgb 6.6 s/p 1 unit PRBCs, absolute neutrophils 0.4, PLT 43, retic 2.5, T. bili 1.9, D bili 0.4, LDH 254, B12 730, folate >20, haptoglobin pending
Plan
Plan
#Pancytopenia
Recommend bone marrow biopsy
Recommend flow cytometry
Additional 1 unit PRBCs ordered, pending
Transfuse Hgb <7
Monitor CBC, clinical status while inpatient
Hematology Addendum:
Patient seen and evaluated and agree w/ resident note and plan as outlined
-pancytopenia - unclear etiology - potentially related to underlying bone marrow process - MDS vs. AML vs. other
-receiving PRBCs transfusion
-reviewed peripheral smear - paucity of neutrophils - neutropenia appreciated - slight monocytosis -scattered nucleated RBCs
-check peripheral blood flow cytometry
-substrate evaluation - check B12/ folic acid levels
-discussed role for diagnostic bone marrow biopsy w/ patient - who expressed interest in proceeding with this diagnostic test
-recommend diagnostic bone marrow evaluation w/ IR - inpt vs. outpt - pending improvement in pt's performance status w/ transfusion of PRBCs
Will continue to follow with you.
Subjective/Objective
Chief Complaint
[facility] hematology follow-up
Subjective
Patient resting comfortably. No complaints.
Vital Signs:
Vital Signs
Temp Pulse Resp BP Pulse Ox
97.9 F 98 16 158/55 96
05/26/25 22:38 05/26/25 22:38 05/26/25 22:38 05/26/25 22:38 05/26/25 22:38
Lab Results:
Laboratory Data
WBC 2.6 10^3/uL (4.8-10.8) L 05/26/25 06:19
Hgb 8.1 g/dL (12.0-16.0) L D 05/26/25 06:19
Plt Count 44 10^3/uL (130-400) L 05/26/25 06:19
eGFR 55.21 05/26/25 06:19
[2025-05-27 07:30] VITALS: BP 133/58
[2025-05-27 08:20] LABS: Blood Urea Nitrogen 30 mg/dl (7-17); Calcium 8.5 mg/dl (8.4-10.2); Carbon Dioxide 24 mmol/L (22-30); Chloride 110 mmol/L (98-107); Estimated Creatinine Clearance 50 ml/min; Glucose 137 mg/dl (70-99); Potassium 3.9 mmol/L (3.5-5.1); Sodium 140 mmol/L (135-145); eGFR > 60.00
[2025-05-27] MEDS: PROCARDIA XL (EXTENDED RELEASE) 60 MG PO (08:28)
[2025-05-27 09:15] LABS: Hematocrit 22.9 % (37.0-47.0); Hemoglobin 7.4 g/dL (12.0-16.0); Mean Corp Hgb Conc. 32.3 g/dL (33.0-37.0); Mean Corpuscular Volume 97.9 fL (81.0-99.0); Platelet Count 38 10^3/uL (130-400); Red Cell Dist. Width 19.7 % (11.5-14.5)
[2025-05-27 09:40] VITALS: BP 133/58
--- NOTE | 2025-05-27 09:44 | W.PN.HOSP.TC ---
Today's Communication/Plan
-
Feeling well, no bleeding
AM CBC labwork
Assessment / Plan
Assessment / Plan
Physical Exam
NAD
Normocephalic
MMM
CTABL
RRR, S1/S2
Soft, NT, ND, BS+
Warm, Dry
AAOx3
Calm
Assessment/Plan
Pancytopenia with symptomatic anemia, suspected secondary to bone marrow failure (e.g., MDS) or infiltration (e.g., AML)
S/p 2 units PRBCs (05/24/25 and 05/25/25)
Consult hematology/oncology
D. bili normal
Peripheral smear
May need BmBx and flow cyto
-Appreciate Hem Onc recs
I communicated on 05/27/[address]ice [address] Wallace and said that blood products do not need to be ordered as irradiated and probably do not need to be CMV-negative as she is unlikely to be a transplant candidate her age
Keep hgb >7, transfuse as needed
Essential Hypertension
Continue doxazosin and nifedipine
Hyperlipidemia
Hold lovastatin
Gout
Hold allopurinol
Obstructive Sleep Apnea
Declined hospital CPAP
DVT Prophylaxis: SCDs
Anticipated Discharge: > 48 hours
Subjective/Interval History
-
Date of Service: May 27, 2025
Patient was seen and examined. She reported feeling fine, no dizziness or shortness of breath.
Objective Data
-
Labs:
Laboratory Results
05/27/25
07:24
WBC 2.0 L*
Hgb 7.4 L
Hct 22.9 L
Plt Count 38 L
Sodium 140
Potassium 3.9
Chloride 110 H
Carbon Dioxide 24
BUN 30 H
Creatinine 0.9
Glucose 137 H
Calcium 8.5
Vital Signs:
Vital Signs
Temp Pulse Resp BP Pulse Ox
98.1 F 78 14 133/58 94
05/27/25 07:30 05/27/25 08:28 05/27/25 07:30 05/27/25 08:28 05/27/25 07:30
I&O
05/26/25 05/27/25 05/28/25
06:59 06:59 06:59
Intake Total 240 / 240 480 / 480
Output Total
Balance 239 / 239 480 / 480
[2025-05-27 14:18] LABS: Absolute Neutrophils -Man Diff 0.6 10^3/uL (1.4-6.5)
[2025-05-27 14:20] LABS: Normal RBC Morphology No; Platelets Checked YES
[2025-05-27 14:21] LABS: Anisocytosis Slight
[2025-05-27 14:22] LABS: Hypochromasia Slight; Ovalocytes FEW; Total Cells Counted 100
[2025-05-27 15:00] VITALS: BP 149/59
[2025-05-27 21:08] VITALS: BP 128/51
[2025-05-27] MEDS: CARDURA 8 MG PO (21:08)
[2025-05-27 23:41] VITALS: BP 160/74
[2025-05-28 07:30] VITALS: BP 146/57
[2025-05-28 07:57] VITALS: BP 146/57
--- NOTE | 2025-05-28 08:14 | W.PN.HOSP.TC ---
Today's Communication/Plan
-
See plan
Assessment / Plan
Assessment / Plan
Physical Exam
NAD
Normocephalic
MMM
CTABL
RRR, S1/S2
Soft, NT, ND, BS+
Warm, Dry
AAOx3
Calm
Assessment/Plan
Pancytopenia with symptomatic anemia, suspected secondary to bone marrow failure (e.g., MDS) or infiltration (e.g., AML)
S/p 2 units PRBCs (05/24/25 and 05/25/25)
Consult hematology/oncology
D. bili normal
Peripheral smear
May need BmBx and flow cyto
-Appreciate Hem Onc recs
I communicated on 05/27/[address] Wallace and said that blood products do not need to be ordered as irradiated and probably do not need to be CMV-negative as she is unlikely to be a transplant candidate her age
Hgb stable overall today
Hematology is working on outpatient bone marrow biopsy set up with interventional radiology --> once this is set up and confirmed, will discharge patient
Keep hgb >7, transfuse as needed
Essential Hypertension
Continue doxazosin and nifedipine
Hyperlipidemia
Hold lovastatin
Gout
Hold allopurinol
Obstructive Sleep Apnea
Declined hospital CPAP
DVT Prophylaxis: SCDs
Anticipated Discharge: 24 - 48 hours
Subjective/Interval History
-
Date of Service: May 28, 2025
Patient was seen and examined. She was feeling fine and denied any new symptoms or complaints.
Objective Data
-
Labs:
Laboratory Results
05/28/25
07:56
WBC Pending
Hgb Pending
Hct Pending
Plt Count Pending
Sodium Pending
Potassium Pending
Chloride Pending
Carbon Dioxide Pending
BUN Pending
Creatinine Pending
Glucose Pending
Calcium Pending
Vital Signs:
Vital Signs
Temp Pulse Resp BP Pulse Ox
97.8 F 83 16 146/57 94
05/28/25 07:30 05/28/25 07:30 05/28/25 07:30 05/28/25 07:30 05/28/25 07:30
I&O
05/27/25 05/28/25 05/29/25
06:59 06:59 06:59
Intake Total 480 / 480
Balance 480 / 480
[2025-05-28 08:24] LABS: Hematocrit 23.8 % (37.0-47.0); Hemoglobin 7.9 g/dL (12.0-16.0); Mean Corp Hgb Conc. 33.2 g/dL (33.0-37.0); Mean Corpuscular Volume 98.8 fL (81.0-99.0); Platelet Count 32 10^3/uL (130-400); Red Cell Dist. Width 18.8 % (11.5-14.5)
[2025-05-28 08:52] LABS: Blood Urea Nitrogen 33 mg/dl (7-17); Calcium 8.6 mg/dl (8.4-10.2); Carbon Dioxide 23 mmol/L (22-30); Chloride 112 mmol/L (98-107); Estimated Creatinine Clearance 50 ml/min; Glucose 131 mg/dl (70-99); Potassium 3.7 mmol/L (3.5-5.1); Sodium 139 mmol/L (135-145); eGFR > 60.00
[2025-05-28] MEDS: PROCARDIA XL (EXTENDED RELEASE) 60 MG PO (09:08)
[2025-05-28 09:39] LABS: Nucleated Red Blood Cells % 1.1 %
--- NOTE | 2025-05-28 10:06 | W.PN.ONC2 ---
Today's Communication / Plan
-
f/u peripheral flow
Bone marrow biopsy will discuss logistics of outpatient BMBx this week with the primary service and interventional radiology
neutropenic precautions
transfuse Hgb <7 or as needed for sxs anemia
transfuse platelets <20
no special products needed for transfusion
Impression
Impression
Pancytopenia -05/25 peripheral smear showed paucity of neutrophils - neutropenia appreciated - slight monocytosis -scattered nucleated RBCs
Suspected 2/2 bone marrow failure (e.g., MDS) or infiltration (e.g., AML)
Pancytopenia with macrocytosis (without B12, folate deficiency), RBC dysplasia (acanthocytes, ovalocytes, schistocytes), normal reticulocyte count, and recent fatigue and BENNETT suggest possible MDS
Plan
Plan
-pancytopenia - unclear etiology - potentially related to underlying bone marrow process - MDS vs. AML vs. other -s/p 2U prbc during hospitalization
-f/u peripheral flow
-recommend diagnostic bone marrow evaluation
Subjective/Objective
Subjective
afebrile, no hypoxia or hypotension
Vital Signs:
Vital Signs
Temp Pulse Resp BP Pulse Ox
97.8 F 83 16 146/57 94
05/28/25 07:30 05/28/25 07:30 05/28/25 07:30 05/28/25 07:30 05/28/25 07:30
Lab Results:
Laboratory Data
WBC 1.8 10^3/uL (4.8-10.8) L* 05/28/25 07:56
Hgb 7.9 g/dL (12.0-16.0) L 05/28/25 07:56
Plt Count 32 10^3/uL (130-400) L 05/28/25 07:56
eGFR > 60.00 05/28/25 07:56
Physical Exam
HEENT: Moist Mucous Membranes; No Jaundice
Pulmonary: Other (unlabored)
GI: Soft
Extremities: Pulses Present
Neuro: Non Focal
[2025-05-28 10:07] VITALS: BP 149/69; PULSE 89; O2SAT 98
[2025-05-28 15:00] VITALS: BP 133/64
[2025-05-28] MEDS: CARDURA 8 MG PO (21:00)
[2025-05-28 21:16] LABS: Source Blood
[2025-05-28 23:51] VITALS: BP 128/65
[2025-05-29 07:11] VITALS: BP 124/56
[2025-05-29] MEDS: PROCARDIA XL (EXTENDED RELEASE) 60 MG PO (08:27)
--- NOTE | 2025-05-29 09:26 | W.PN.HOSP.TC ---
Today's Communication/Plan
-
Discharge today
Assessment / Plan
Assessment / Plan
Physical Exam
NAD
Normocephalic
MMM
CTABL
RRR, S1/S2
Soft, NT, ND, BS+
Warm, Dry
AAOx3
Calm
Assessment/Plan
Pancytopenia with symptomatic anemia, suspected secondary to bone marrow failure (e.g., MDS) or infiltration (e.g., AML)
S/p 2 units PRBCs (05/24/25 and 05/25/25)
Consult hematology/oncology
Peripheral smear
May need BmBx and flow cyto
-Appreciate Hem Onc recs
-Okay for discharge today with repeat labs outpatient in 2 days, as per hem/onc
Essential Hypertension
Continue doxazosin and nifedipine
Hyperlipidemia
Hold lovastatin -- discuss with your outpatient doctor if and when to resume this medication
Gout
Hold allopurinol -- discuss with your outpatient doctor if and when to resume this medication
Obstructive Sleep Apnea
Declined hospital CPAP
DVT Prophylaxis: SCDs
More than 30 minutes spent in discharge including
Final examination of the patient
Summarizing hospital stay
Instructions for continuing care to all relevant caregivers
Preparation of discharge records, prescriptions, and referral forms
Total time spent (in minutes): 39
Anticipated Discharge: Today
Subjective/Interval History
-
Date of Service: May 29, 2025
Patient was seen and examined. She denied any symptoms or complaints. She is very happy if she can go home today.
Objective Data
-
Labs:
Laboratory Results
05/29/25
08:03
WBC Pending
Hgb Pending
Hct Pending
Plt Count Pending
Sodium Pending
Potassium Pending
Chloride Pending
Carbon Dioxide Pending
BUN Pending
Creatinine Pending
Glucose Pending
Calcium Pending
Vital Signs:
Vital Signs
Temp Pulse Resp BP Pulse Ox
97.5 F 80 16 124/56 95
05/29/25 07:11 05/29/25 07:11 05/29/25 07:11 05/29/25 07:11 05/29/25 07:11
[2025-05-29 09:37] LABS: Blood Urea Nitrogen 29 mg/dl (7-17); Calcium 8.6 mg/dl (8.4-10.2); Carbon Dioxide 24 mmol/L (22-30); Chloride 111 mmol/L (98-107); Estimated Creatinine Clearance 57 ml/min; Glucose 122 mg/dl (70-99); Potassium 3.7 mmol/L (3.5-5.1); Sodium 137 mmol/L (135-145); eGFR > 60.00
[2025-05-29 10:00] LABS: Hematocrit 22.4 % (37.0-47.0); Hemoglobin 7.2 g/dL (12.0-16.0); Mean Corp Hgb Conc. 32.1 g/dL (33.0-37.0); Mean Corpuscular Volume 99.1 fL (81.0-99.0); Nucleated Red Blood Cells % 0 %; Platelet Count 29 10^3/uL (130-400); Red Cell Dist. Width 18.3 % (11.5-14.5)
[2025-05-29 10:49] VITALS: BP 110/60
--- NOTE | 2025-05-29 11:20 | CM ---
Chart reviewed and patient is ambulating well with physical therapy and plan is to home with visiting nurses, visiting nurse options reviewed with patient and she has selected [facility], referral sent to [facility].
Plan; Home with [facility]
--- NOTE | 2025-05-29 11:51 | W.PN.ONC ---
Today's Communication / Plan
-
Okay for d/c from a heme/onc standpoint
we're working to arrange outpatient BM biopsy
repeat CBC in ~2 days, and weekly as outpatient, with outpatient transfusions as needed
f/u with [facility] will be arranged
Impression
Impression
Pancytopenia -05/25 peripheral smear showed paucity of neutrophils - neutropenia appreciated - slight monocytosis -scattered nucleated RBCs, peripheral flow with 1.7% blasts (may be hemodilute)
Suspected 2/2 bone marrow failure (e.g., MDS) or infiltration (e.g., AML)
Pancytopenia with macrocytosis (without B12, folate deficiency), RBC dysplasia (acanthocytes, ovalocytes, schistocytes), normal reticulocyte count, and recent fatigue and BENNETT suggest possible MDS
Plan
Plan
Okay for d/c from a heme/onc standpoint
we're working to arrange outpatient BM biopsy
repeat CBC in ~2 days, and weekly as outpatient, with outpatient transfusions as needed
f/u with [facility] will be arranged
Subjective/Objective
Subjective/Objective
felt a little dizzy this am, maybe from not eating in >12hrs, waiting for breakfast tray
Vital Signs:
Vital Signs
Temp Pulse Resp BP Pulse Ox
97.5 F 80 16 124/56 97
05/29/25 07:11 05/29/25 07:11 05/29/25 07:11 05/29/25 07:11 05/29/25 08:30
Lab Results:
Laboratory Data
WBC 1.7 10^3/uL (4.8-10.8) L* 05/29/25 08:03
Hgb 7.2 g/dL (12.0-16.0) L 05/29/25 08:03
Plt Count 29 10^3/uL (130-400) L* 05/29/25 08:03
eGFR > 60.00 05/29/25 08:03
--- NOTE | 2025-05-29 13:11 | VNURNOTE ---
Home Health Liaison met with patient at bedside to discuss [facility] nurse/therapy, visits, schedule and homebound status. Patient is agreeable and understands that visits at home will be 2-3 x per week to assess and teach medical management. Patient
is aware that [facility] will contact them for start of care within a few days after discharge from . Provided contact number for [facility].
[facility] referral completed in [facility].
[2025-05-29 15:01] VITALS: BP 143/59
== END 2025-05-29 18:33 | disposition home health service (06) | DRG 812 ==
LOC: 4 WEST ACU 20:35
PROVIDERS: Emergency Medicine; Hospitalist; Nurse Practitioner Acute Care; Physician Assistant Medical; ADMITTING PHYSICIAN Hospitalist; ATTENDING PHYSICIAN Hospitalist; EMERGENCY PHYSICIAN Emergency Medicine; FAMILY PHYSICIAN Family Medicine; OTHER PHYSICIAN Internal Medicine Hematology & Oncology
PROC: 30233N1 Transfusion of Nonautologous Red Blood Cells into Peripheral Vein, Percutaneous Approach (ICD-10-PCS; 2025-05-24)
DX: D46.9 Myelodysplastic syndrome, unspecified (principal); D61.818 Other pancytopenia; I10 Essential (primary) hypertension; G47.33 Obstructive sleep apnea (adult) (pediatric); M10.9 Gout, unspecified; E66.09 Other obesity due to excess calories; Z68.33 Body mass index [BMI] 33.0-33.9, adult; Z85.42 Personal history of malignant neoplasm of other parts of uterus; E66.812 Obesity, class 2; Z93.3 Colostomy status; Z90.710 Acquired absence of both cervix and uterus; E78.00 Pure hypercholesterolemia, unspecified; E11.9 Type 2 diabetes mellitus without complications; Z79.899 Other long term (current) drug therapy; Z80.0 Family history of malignant neoplasm of digestive organs; Z85.828 Personal history of other malignant neoplasm of skin; Z92.3 Personal history of irradiation
CPT/HCPCS: 36415; 80048; 80053; 80069; 81003; 81015; 82248; 82607; 82728; 82746; 83010; 83540; 83550; 83615; 83880; 84443; 84550; 85025; 85027; 85045; 86850; 86900; 86901; 86920; 87086; 93005; 97110; 97116; 97163; 99285; P9016; P9058

== ENCOUNTER → 2025-06-01 12:09 | Outpatient (REF) | payer MEDICARE, BC, SELFPAY ==
[2025-06-01 14:20] LABS: ALT (SGPT) 18 U/L (0-35); AST (SGOT) 16 U/L (14-36); Albumin 4.0 g/dl (3.5-5.0); Alkaline Phosphatase 78 U/L (38-126); Blood Urea Nitrogen 38 mg/dl (7-17); Calcium 9.3 mg/dl (8.4-10.2); Carbon Dioxide 25 mmol/L (22-30); Chloride 108 mmol/L (98-107); Glucose 151 mg/dl (70-99); Potassium 3.6 mmol/L (3.5-5.1); Sodium 136 mmol/L (135-145); Total Protein 6.7 g/dl (6.3-8.2); eGFR 55.21
[2025-06-01 14:26] LABS: Hematocrit 23.6 % (37.0-47.0); Hemoglobin 7.6 g/dL (12.0-16.0); Mean Corp Hgb Conc. 32.2 g/dL (33.0-37.0); Mean Corpuscular Volume 100.0 fL (81.0-99.0); Nucleated Red Blood Cells % 0 %; Platelet Count 32 10^3/uL (130-400); Red Cell Dist. Width 17.3 % (11.5-14.5)
== END ==
LOC: REG 12:09
PROVIDERS: ATTENDING PHYSICIAN Family Medicine
DX: N18.31 Chronic kidney disease, stage 3a (principal); I10 Essential (primary) hypertension; R06.02 Shortness of breath; R60.9 Edema, unspecified
CPT/HCPCS: 36415; 80053; 83880; 84100; 85025